=== PATIENT | male | born 1985 | race Caucasian/White ===

== ENCOUNTER 2017-07-20 14:20 | Emergency (ER) | payer MEDICAID ==
[2017-07-20] MEDS ORDERED: cefTRIAXone 1 GM Vial IM ONE (14:41)
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
[2017-07-20] MEDS ORDERED: Lidocaine 1% 2 ML ONE (14:46)
== END 2017-07-20 15:20 | disposition home or self-care (01) ==
LOC: VM.ED 14:20
DX: L03.115 Cellulitis of right lower limb (principal)
CPT/HCPCS: 87070; 87077; 96372; 99283; J0696; J2001

== ENCOUNTER 2017-09-27 07:26 | Observation (INO) | payer MEDICAID ==
[2017-09-27] MEDS ORDERED: hydrALAZINE 20 MG/ML SDV IVPUSH ONE (07:51)
[2017-09-27 08:54] LABS: CHLORIDE,CL 103 mmol/L (98-107); SODIUM,NA 138 mmol/L (136-145)
[2017-09-27 08:55] LABS: ANION GAP 16.1 mmol/L (10-20)
[2017-09-27] MEDS ORDERED: Ondansetron 4 MG/2 ML SDV IVPUSH ONE (09:12)
[2017-09-27] MEDS ORDERED: Ketorolac 30 MG/ML SDV IVPUSH ONE (09:15)
[2017-09-27] MEDS ORDERED: Metoclopramide 10 MG/2 ML SDV IVPUSH ONE (09:15)
[2017-09-27] MEDS ORDERED: Lactated Ringers 1,000 ML IV SCH (10:30)
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
[2017-09-27] MEDS: amLODIPine 5 MG Tab PO SCH (11:06)
[2017-09-27] MEDS: Sodium Chloride 0.9% 10 ML Syringe FLUSH PRN ×2 (11:07→20:30)
[2017-09-27] MEDS ORDERED: cloNIDine 0.1 MG Tab PO ONE (12:48)
[2017-09-27] MEDS ORDERED: Ondansetron 4 MG/2 ML SDV IVPUSH PRN (14:18)
[2017-09-27] MEDS ORDERED: amLODIPine 5 MG Tab PO ONE (14:20)
[2017-09-28] MEDS ORDERED: Ketorolac 15 MG/ML SDV IVPUSH ONE (06:24)
[2017-09-28] MEDS: Sodium Chloride 0.9% 10 ML Syringe FLUSH PRN (06:37)
[2017-09-28] MEDS: amLODIPine 5 MG Tab PO SCH (08:06)
--- NOTE | 2017-10-08 09:31 | PCM.DCSUM1 ---
Discharge Summary - Hospital Course Free Text/Narrative:: Discharge today on behalf of Darrius oLuis. HPI Initial Comments: He was in observation for hypertension and that has improved. Also his headache has improved. He is here with family and ready to be discharged. He will be following up with his primary provider Derrell by the end of the week. Diagnosis: Stroke: No Modified Osmel Scale: No Signif.Disability Despite Sympt.Able to Carry Out Usual Act./Duties Modified Osmel Scale Score: 1 - Discharge Data Discharge Date: 09/28/17 Discharge Disposition: Home, Self-Care 01 Condition: Good - Patient Instructions Diet: Regular Diet as Tolerated Wound/Incision Care: Change Dressing Daily - Discharge Plan Prescriptions/Med Rec: amLODIPine/Valsartan [Amlodipine-Valsartan 5-160 mg] 1 each PO DAILY #14 tablet Home Medications: Home Meds amLODIPine/Valsartan [Amlodipine-Valsartan 5-160 mg] 1 each PO DAILY #14 tablet 09/28/17 [Rx] Patient Handouts: Preventing Hypertension, Amlodipine; Valsartan oral tablet, Amlodipine tablets Forms: ED Department Discharge Referrals: Derrell Lopez NP [Primary Care Provider] - - Discharge Summary/Plan Comment DC Time >30 min.: No Discharge Summary/Plan Comment: Discharge ad [place]. On new medication for HTN. Follow-up with primary. Nominal existing headache. - Patient Data Vitals - Most Recent: Last Vital Signs Temp 36.4 C 09/28/17 10:00 Pulse 72 09/28/17 10:00 Resp 75 H 09/28/17 10:00 BP 138/92 H 09/28/17 10:00 Pulse Ox 98 09/28/17 10:00 Weight - Most Recent: 121.563 kg Med Orders - Current: Current Medications Discontinued Medications Amlodipine Besylate (Norvasc) 5 mg PO DAILY AARON Last Admin: 09/28/17 08:06 Dose: 5 mg Amlodipine Besylate (Norvasc) 5 mg PO ONETIME ONE Stop: 09/27/17 14:21 Last Admin: 09/27/17 14:30 Dose: 5 mg Clonidine HCl (Catapres) 0.1 mg PO ONETIME ONE Stop: 09/27/17 12:49 Last Admin: 09/27/17 13:00 Dose: 0.1 mg Hydralazine HCl (Apresoline) 20 mg IVPUSH ONETIME ONE Stop: 09/27/17 07:52 Last Admin: 09/27/17 08:13 Dose: 20 mg Lactated Ringer's (Ringers, Lactated) 1,000 mls @ 100 mls/hr IV ASDIRECTED AARON Last Admin: 09/27/17 11:08 Dose: 100 mls/hr Ketorolac Tromethamine (Toradol) 30 mg IVPUSH ONETIME ONE Stop: 09/27/17 09:16 Last Admin: 09/27/17 09:20 Dose: 30 mg Ketorolac Tromethamine (Toradol) 15 mg IVPUSH ONETIME ONE Stop: 09/28/17 06:25 Last Admin: 09/28/17 06:35 Dose: 15 mg Metoclopramide HCl (Reglan) 10 mg IVPUSH ONETIME ONE Stop: 09/27/17 09:16 Last Admin: 09/27/17 09:22 Dose: 10 mg Ondansetron HCl (Zofran) 4 mg IVPUSH ONETIME ONE Stop: 09/27/17 09:13 Last Admin: 09/27/17 10:56 Dose: Not Given Ondansetron HCl (Zofran) 4 mg IVPUSH Q8H PRN PRN Reason: Nausea Last Admin: 09/27/17 14:30 Dose: 4 mg Sodium Chloride (Saline Flush) 10 ml FLUSH ASDIRECTED PRN PRN Reason: Keep Vein Open Last Admin: 09/28/17 06:37 Dose: 10 ml
== END 2017-09-28 10:34 | disposition home or self-care (01) ==
LOC: VM.ED 07:26 → VM.MS 09:42 → UNDOADMOB 09:46 → VM.MS 09:46
PROVIDERS: ADMIT Physician Assistant; ATTEND Physician Assistant
DX: I16.0 Hypertensive urgency (principal); R51 Headache; Z79.899 Other long term (current) drug therapy
CPT/HCPCS: 36415; 70450; 71046; 80053; 81001; 83735; 83880; 84100; 84443; 84484; 85025; 85610; 86140; 93005; 96361; 96374; 96375; 96376; 99285; A9270; G0378; J0360; J1885; J2405; J2765; J7050; J7120

== ENCOUNTER 2018-07-02 12:01 | Emergency (ER) | payer MEDICAID ==
[2018-07-02] MEDS ORDERED: Metoprolol Succinate 50 MG Tab.ER PO ONE (12:18)
[2018-07-02] MEDS ORDERED: Take Home: Ondansetron 4 MG Tab.DIS, 2 Tab Pack PO ONE (12:44)
[2018-07-02 12:46] LABS: CHLORIDE,CL 101 mmol/L (98-107); SODIUM,NA 139 mmol/L (136-145)
[2018-07-02 12:47] LABS: ANION GAP 18.6 mmol/L (10-20)
--- NOTE | 2018-07-02 12:54 | EDM.PDOC ---
ED HPI GENERAL MEDICAL PROBLEM - General Chief Complaint: Gastrointestinal Problem Stated Complaint: vomiting, HEADACHE Time Seen by Provider: 07/02/18 12:02 Source of Information: Reports: Patient, Old Records, RN, RN Notes Reviewed History Limitations: Reports: No Limitations - History of Present Illness INITIAL COMMENTS - FREE TEXT/NARRATIVE: Patient presents to the ED at [facility] for the evaluation of a 3 day history of headache, nausea, and vomiting. Patient has not taken his blood pressure pill for 3 days because he ran out. No recent travel. Patient has not eaten since yesterday. No dizziness. No visual problems. No diarrhea. No chest pain or SOB. No other focal neurological problems. He states he has only vomited a couple times. Has has not taken any medications at home for his current symptoms. Onset Date: 06/30/18 - Related Data Allergies Allergy/AdvReac Type Severity Reaction Status Date / Time No Known Allergies Allergy Verified 07/02/18 12:16 Home Meds: Home Meds Citalopram [Citalopram HBr] 20 mg PO DAILY 07/02/18 [History] Metoprolol Succinate [Toprol XL 50mg] 50 mg PO DAILY 07/02/18 [History] Metoprolol Succinate [Toprol XL 50mg] 50 mg PO DAILY 6 Days #6 tab.er 07/02/18 [ Rx] Past Medical History Cardiovascular History: Reports: Blood Clots/VTE/DVT, Hypertension Gastrointestinal History: Reports: PUD Musculoskeletal History: Reports: Other (See Below) Other Musculoskeletal History: 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 Psychiatric History: Reports: Anxiety, Depression Dermatologic History: Reports: Other (See Below) Other Dermatologic History: Extensive williamson on most of body at 5 years of age - Infectious Disease History Infectious Disease History: Reports: MRSA - Past Surgical History Dermatological Surgical History: Reports: Plastic Surgical Reconstruction/Repair , Skin Graft Social & Family History - Family History Family Medical History: Unobtainable - Tobacco Use Smoking Status *Q: Current Every Day Smoker Years of Tobacco use: 11 Packs/Tins Daily: 0.5 - Caffeine Use Caffeine Use: Reports: Soda - Recreational Drug Use Drug Use in Last 12 Months: No ED ROS GENERAL - Review of Systems Review Of Systems: See Below Constitutional: Denies: Fever, Chills Respiratory: Denies: Shortness of Breath, Cough Cardiovascular: Denies: Chest Pain, Palpitations GI/Abdominal: Reports: Nausea, Vomiting. Denies: Abdominal Pain Skin: Reports: No Symptoms Neurological: Reports: Headache. Denies: Confusion, Dizziness ED EXAM, GI/ABD - Physical Exam Exam: See Below Exam Limited By: No Limitations General Appearance: Alert, No Apparent Distress Respiratory/Chest: No Respiratory Distress, Lungs Clear, Normal Breath Sounds Cardiovascular: Normal Peripheral Pulses, Regular Rate, Rhythm GI/Abdominal Exam: Normal Bowel Sounds, Soft, Non-Tender Neurological: Alert, Oriented Skin Exam: Warm, Dry, Intact, Normal Color Course - Vital Signs Last Recorded V/S: Last Vital Signs Temp 35.6 C 07/02/18 12:05 Pulse 77 07/02/18 13:56 Resp 16 07/02/18 13:56 BP 188/115 H 07/02/18 13:56 Pulse Ox 98 07/02/18 13:56 - Orders/Labs/Meds Orders: Active Orders 24 hr Category Date Time Status BLOOD SMEARS TO PATHOLOGIST [REF] Stat Lab 07/02/18 12:24 Received Sodium Chloride 0.9% [Normal Saline] 1,000 ml Med 07/02/18 13:10 Active IV ONETIME Sodium Chloride 0.9% [Saline Flush] Med 07/02/18 13:10 Active 10 ml FLUSH ASDIRECTED PRN Peripheral IV Insertion Adult [OM.PC] Routine Oth 07/02/18 13:10 Ordered Medication Orders Sodium Chloride (Normal Saline) 1,000 mls @ 999 mls/hr IV ONETIME ONE Stop: 07/02/18 14:10 Last Admin: 07/02/18 13:24 Dose: 999 mls/hr Sodium Chloride (Saline Flush) 10 ml FLUSH ASDIRECTED PRN PRN Reason: Keep Vein Open Labs: Laboratory Tests 07/02/18 07/02/18 Range/Units 12:24 12:24 WBC 7.7 (4.0-10.0) x10^3/uL RBC 7.15 H (4.5-6.0) x10^6/uL Hgb 20.4 H D (14.0-18.0) g/dL Hct 59.7 H (40.0-52.0) % MCV 83.5 (78.0-93.0) fL MCH 28.5 (26.0-32.0) pg MCHC 34.2 (32.0-36.0) g/dL RDW Coeff of Ari 15.3 H (10.0-15.0) % Plt Count 177 (130-400) x10^3/uL Neut % (Auto) 73.5 (50.0-80.0) % Lymph % (Auto) 16.7 L (25.0-50.0) % [place] % (Auto) 7.6 (2.0-11.0) % Eos % (Auto) 1.8 (0.0-4.0) % Baso % (Auto) 0.4 (0.2-1.2) % Sodium 139 (136-145) mmol/L Potassium 4.6 (3.5-5.1) mmol/L Chloride 101 (98-107) mmol/L Carbon Dioxide 24 (21-32) mmol/L Anion Gap 18.6 (10-20) mmol/L BUN 17 (7-18) mg/dL Creatinine 1.2 (0.70-1.30) mg/dL Est Cr Clr Drug Dosing TNP Estimated GFR (MDRD) > 60 Glucose 95 (74-106) mg/dL Calcium 9.9 (8.5-10.1) mg/dL Meds: Medications Generic Name Dose Route Start Last Admin Trade Name Freq PRN Reason Stop Dose Admin Sodium Chloride 1,000 mls @ 999 mls/hr 07/02/18 13:10 07/02/18 13:24 Normal Saline IV 07/02/18 14:10 999 mls/hr ONETIME ONE Administration Sodium Chloride 10 ml 07/02/18 13:10 Saline Flush FLUSH ASDIRECTED PRN Keep Vein Open Discontinued Medications Generic Name Dose Route Start Last Admin Trade Name Freq PRN Reason Stop Dose Admin Metoprolol Succinate 50 mg 07/02/18 12:18 07/02/18 12:39 Toprol Xl PO 07/02/18 12:19 50 mg ONETIME ONE Administration Ondansetron HCl 2 packet 07/02/18 12:44 07/02/18 13:24 Take Home: Ondansetron Odt 4 Mg, 2 Tab Pack PO 07/02/18 12:45 2 packet ONETIME ONE Administration Ondansetron HCl 4 mg 07/02/18 13:10 07/02/18 13:24 Zofran IVPUSH 07/02/18 13:11 4 mg ONETIME ONE Administration - Radiology Interpretation Free Text/Narrative:: Abd 2V: Nonspecific mild bowel distention See scanned report in EMR for details - Re-Assessments/Exams Free Text/Narrative Re-Assessment/Exam: 07/02/18 14:05 Blood pressure rechecked. 167/110. Headache has resolved. Nausea has resolved. Patient asking to be discharged "because I need to go get something to eat." Departure - Departure Time of Disposition: 14:06 Disposition: Home, Self-Care 01 Condition: Good Clinical Impression: Hypertensive urgency Nausea & vomiting Qualifiers: Vomiting type: bilious vomiting Qualified Code(s): R11.14 - Bilious vomiting - Discharge Information *PRESCRIPTION DRUG MONITORING PROGRAM REVIEWED*: Not Applicable *COPY OF PRESCRIPTION DRUG MONITORING REPORT IN PATIENT PATRICK: Not Applicable Prescriptions: Metoprolol Succinate [Toprol XL 50mg] 50 mg PO DAILY 6 Days #6 tab.er Instructions: Hypertension Referrals: Derrell Lopez [facility]DC[facility] ATTENDANT [Primary Care Provider] - Forms: ED Department Discharge Additional Instructions: 1. Stay well hydrated and rest 2. PLEASE take your blood pressure medication everyday; you have a new prescription at the pharmacy 3. LOTS of water 4. Continue getting dressing changes to your leg at the clinic 5. See your PCP as symptoms warrant - Problem List Review Problem List Initiated/Reviewed/Updated: Yes - My Orders Last 24 Hours: My Active Orders 07/02/18 12:24 BLOOD SMEARS TO PATHOLOGIST [REF] Stat 07/02/18 13:10 Sodium Chloride 0.9% [Normal Saline] 1,000 ml IV ONETIME Sodium Chloride 0.9% [Saline Flush] 10 ml FLUSH ASDIRECTED PRN Peripheral IV Insertion Adult [OM.PC] Routine - Assessment/Plan Last 24 Hours: My Active Orders 07/02/18 12:24 BLOOD SMEARS TO PATHOLOGIST [REF] Stat 07/02/18 13:10 Sodium Chloride 0.9% [Normal Saline] 1,000 ml IV ONETIME Sodium Chloride 0.9% [Saline Flush] 10 ml FLUSH ASDIRECTED PRN Peripheral IV Insertion Adult [OM.PC] Routine Assessment:: Hypertensive urgency Headache 2/2 to above N/V 2/2 to above Plan: Patient given his usual dose of Toprol XL in ED. IVF for elevated H&H. Zofran for nausea. Will give patient 6 tabs of Toprol XL 50 until he can get to the pharmacy. Take home pack for nausea. Needs to follow up in clinic for his blood pressure. Patient stable at discharge. Needs to stay well hydrated.
--- NOTE | 2018-07-02 13:05 | CR ---
[id number] RAD/RAD Abd Flat and Upright 2V Exam: RAD Abd Flat and Upright 2V Clinical Data: ABDOMINAL PAIN COMPARISON: NO PREVIOUS SIMILAR EXAM IS AVAILABLE FINDINGS: There is mild bowel distention. The diaphragm is not entirely included on the exam. There is no organomegaly or pathologic calcification. IMPRESSION: NONSPECIFIC MILD BOWEL DISTENTION. CONSIDER ERECT VIEW INCLUDING THE DIAPHRAGM OR CHEST RADIOGRAPH TO CHECK FOR ANY FREE AIR IF NEEDED. Duran Stephens MD 07/02/18 [id number] Thank you for allowing us to participate in the care of your patient.
[2018-07-02] MEDS ORDERED: Sodium Chloride 0.9% 10 ML Syringe FLUSH PRN (13:10)
[2018-07-02] MEDS ORDERED: Sodium Chloride 0.9% 1,000 ML IV ONE (13:10)
[2018-07-02] MEDS ORDERED: Ondansetron 4 MG/2 ML SDV IVPUSH ONE (13:10)
== END 2018-07-02 14:36 | disposition home or self-care (01) ==
LOC: VM.ED 12:01
DX: I16.0 Hypertensive urgency (principal); R11.14 Bilious vomiting; F17.210 Nicotine dependence, cigarettes, uncomplicated; Z79.899 Other long term (current) drug therapy
CPT/HCPCS: 36415; 74019; 80048; 85008; 85025; 96361; 96374; 99283; A9270; J2405; J7030

== ENCOUNTER 2022-03-08 12:31 | Emergency (ER) | payer MEDICARE, MEDICAID | END 2022-03-08 12:55 | disposition home or self-care (01) | LOC: VM.ED 12:31 | DX: L97.929 Non-pressure chronic ulcer of unspecified part of left lower leg with unspecified severity (principal); I10 Essential (primary) hypertension; Z79.899 Other long term (current) drug therapy | CPT/HCPCS: 99282; 99283 ==

== ENCOUNTER 2023-11-12 21:50 | Emergency (ER) | payer MEDICARE, MEDICAID ==
[2023-11-12] MEDS ORDERED: Sodium Chloride 0.9% 10 ML Syringe FLUSH PRN (21:57)
[2023-11-12] MEDS: Lactated Ringers 1,000 ML IV ONE ×2 (22:25→23:20)
[2023-11-12] MEDS: Ondansetron 4 MG/2 ML SDV IVPUSH ONE (22:30)
[2023-11-12 22:34] LABS: BASOPHILS PERCENT AUTO 0.2 % (0.2-1.2); EOSINOPHILS ABSOLUTE AUTO 0.1 x10^3/uL (0.0-0.5); EOSINOPHILS PERCENT AUTO 1.3 % (0.0-4.0); HEMOGLOBIN 18.2 g/dL (14.0-18.0); IMMATURE GRAN ABSOLUTE AUTO 0.02 x10^3/uL (0.00-0.07); LYMPHOCYTES PERCENT AUTO 22.4 % (25.0-50.0); MEAN CORPUSCULAR HEMOGLOBIN 27.7 pg (26.0-32.0); MEAN CORPUSCULAR HGB CONC 34.3 g/dL (32.0-36.0); MEAN CORPUSCULAR VOLUME 80.7 fL (78.0-93.0); MONOCYTES ABSOLUTE AUTO 0.4 x10^3/uL (0.0-0.8); MONOCYTES PERCENT AUTO 9.9 % (2.0-11.0); NEUTROPHILS ABSOLUTE AUTO 2.9 x10^3/uL (1.8-7.7); NEUTROPHILS PERCENT AUTO 65.8 % (50.0-80.0); PLATELET COUNT,PLT 154 x10^3/uL (130-400); RED BLOOD CELL COUNT 6.57 x10^6/uL (4.5-6.0); WHITE BLOOD CELL COUNT,WBC 4.5 x10^3/uL (4.0-10.0)
[2023-11-12 22:48] LABS: INR 1.1 (0.9-1.1); PROTHROMBIN TIME 10.9 SEC (8.9-11.5); PTT,PARTIAL THROMBOPLSTIN TIME 28.8 SEC (21.9-33.8)
[2023-11-12 22:53] LABS: LACTIC ACID 1.1 mmol/L (0.4-2.0)
[2023-11-12 22:59] LABS: A/G RATIO 0.93; ALANINE AMINOTRANSFERASE,ALT 58 U/L (16-63); ALKALINE PHOSPHATASE 122 U/L (46-116); ASPARTATE AMNIOTRANSFERASE,AST 40 U/L (15-37); BILIRUBIN TOTAL 1.1 mg/dL (0.2-1.0); BLOOD UREA NITROGEN,BUN 23 mg/dL (7-18); C-REACTIVE PROTEIN 4.92 mg/dL (<=0.50); CALCIUM 9.3 mg/dL (8.5-10.1); CARBON DIOXIDE,CO2 22 mmol/L (21-32); CHLORIDE,CL 99 mmol/L (98-107); CREATININE 1.6 mg/dL (0.70-1.30); GLUCOSE RANDOM 93 mg/dL (70-99); LIPASE 38 U/L (19-71); MAGNESIUM 1.8 mg/dL (1.8-2.4); POTASSIUM,K 3.5 mmol/L (3.5-5.1); PROTEIN TOTAL,TP 8.3 g/dL (6.4-8.2); SODIUM,NA 135 mmol/L (136-145)
[2023-11-12 23:00] LABS: ANION GAP 17.5 mmol/L (5-15); ESTIMATED GFR 57 mL/min (>=60)
[2023-11-12 23:09] LABS: APPEARANCE,URINE SLIGHTLY CLOUDY (CLEAR); BILIRUBIN,URINE SMALL (NEGATIVE); COLOR,URINE DARK YELLOW (YELLOW); GLUCOSE,URINE NEGATIVE (NEGATIVE); KETONES,URINE 40 mg/dL (NEGATIVE); LEUKOCYTE ESTERASE,URINE NEGATIVE (NEGATIVE); NITRITE,URINE NEGATIVE (NEGATIVE); OCCULT BLOOD,URINE NEGATIVE (NEGATIVE); PH,URINE 5.5 (5.0-8.0); PROTEIN,URINE 100 mg/dL (NEGATIVE)
[2023-11-12 23:15] LABS: AMORPHOUS SEDIMENT,URINE OCCASIONAL; BACTERIA,URINE RARE /HPF (NOT SEEN); GRANULAR CASTS,URINE FEW; HYALINE CASTS,URINE FEW; MUCUS,URINE FEW /LPF (NOT SEEN); RBC,URINE 0-5 /HPF (NOT SEEN); SQUAMOUS EPITHELIAL CELLS,UR NOT SEEN /HPF (NOT SEEN); WBC,URINE 0-5 /HPF (NOT SEEN)
[2023-11-12] MEDS: Take Home: Ondansetron 4 MG Tab.DIS, 5 Tab Pack PO ONE (23:37)
== END 2023-11-13 00:10 | disposition home or self-care (01) ==
LOC: VM.ED 21:50
DX: K52.9 Noninfective gastroenteritis and colitis, unspecified (principal); I10 Essential (primary) hypertension; Z79.899 Other long term (current) drug therapy
CPT/HCPCS: 80053; 81001; 83605; 83690; 83735; 85025; 85610; 85730; 86140; 96361; 96374; 99284-25; J2405; J7120; Q0162

== ENCOUNTER 2024-02-09 06:09 | Emergency (ER) | payer MEDICARE, MEDICAID ==
[2024-02-09] MEDS ORDERED: Sodium Chloride 0.9% 10 ML Syringe FLUSH PRN (06:29)
[2024-02-09] MEDS: Morphine 4 MG/ML Syringe IVPUSH ONE (07:00)
[2024-02-09] MEDS: Lactated Ringers 1,000 ML IV ONE ×2 (07:00→08:20)
[2024-02-09 07:15] LABS: BASOPHILS PERCENT AUTO 0.5 % (0.2-1.2); EOSINOPHILS ABSOLUTE AUTO 0.2 x10^3/uL (0.0-0.5); EOSINOPHILS PERCENT AUTO 2.9 % (0.0-4.0); HEMATOCRIT 51.4 % (40.0-52.0); HEMOGLOBIN 17.7 g/dL (14.0-18.0); IMMATURE GRAN ABSOLUTE AUTO 0.03 x10^3/uL (0.00-0.07); LYMPHOCYTES ABSOLUTE AUTO 1.2 x10^3/uL (1.0-4.8); LYMPHOCYTES PERCENT AUTO 19.4 % (25.0-50.0); MEAN CORPUSCULAR HEMOGLOBIN 29.2 pg (26.0-32.0); MEAN CORPUSCULAR HGB CONC 34.4 g/dL (32.0-36.0); MEAN CORPUSCULAR VOLUME 84.7 fL (78.0-93.0); MONOCYTES ABSOLUTE AUTO 0.4 x10^3/uL (0.0-0.8); MONOCYTES PERCENT AUTO 7.1 % (2.0-11.0); NEUTROPHILS ABSOLUTE AUTO 4.3 x10^3/uL (1.8-7.7); NEUTROPHILS PERCENT AUTO 69.6 % (50.0-80.0); PLATELET COUNT,PLT 212 x10^3/uL (130-400); RED BLOOD CELL COUNT 6.07 x10^6/uL (4.5-6.0); WHITE BLOOD CELL COUNT,WBC 6.2 x10^3/uL (4.0-10.0)
[2024-02-09] MEDS: Aspirin 81 MG Tab.Chew PO ONE (07:24)
[2024-02-09 07:33] LABS: A/G RATIO 0.84; ALANINE AMINOTRANSFERASE,ALT 38 U/L (16-63); ALBUMIN 3.8 g/dL (3.4-5.0); ALKALINE PHOSPHATASE 119 U/L (46-116); ASPARTATE AMNIOTRANSFERASE,AST 20 U/L (15-37); BILIRUBIN TOTAL 0.6 mg/dL (0.2-1.0); BLOOD UREA NITROGEN,BUN 24 mg/dL (7-18); C-REACTIVE PROTEIN 1.66 mg/dL (<=0.50); CALCIUM 9.4 mg/dL (8.5-10.1); CARBON DIOXIDE,CO2 27 mmol/L (21-32); CHLORIDE,CL 102 mmol/L (98-107); CREATININE 1.8 mg/dL (0.70-1.30); EST CRCL DRUG DOSING (CG) 58.02 mL/min; GLUCOSE RANDOM 74 mg/dL (70-99); MAGNESIUM 2.2 mg/dL (1.8-2.4); POTASSIUM,K 4.1 mmol/L (3.5-5.1); PRO B-TYPE NATRIUR PEPT,BNPPRO 160 pg/mL (<=125); PROTEIN TOTAL,TP 8.3 g/dL (6.4-8.2); SODIUM,NA 139 mmol/L (136-145); TSH ULTRASENSITIVE 2.399 uIU/mL (0.358-3.74)
[2024-02-09 07:38] LABS: LACTIC ACID 0.9 mmol/L (0.4-2.0)
[2024-02-09 07:57] LABS: ANION GAP 14.1 mmol/L (5-15); ESTIMATED GFR 49 mL/min (>=60)
[2024-02-09 08:10] LABS: PROTHROMBIN TIME 10.4 SEC (8.9-11.5); PTT,PARTIAL THROMBOPLSTIN TIME 30.3 SEC (21.9-33.8)
[2024-02-09] MEDS ORDERED: Atropine 0.1 MG/ML 10 ML Syringe IVPUSH ONE (08:14)
[2024-02-09 08:31] LABS: APPEARANCE,URINE CLEAR (CLEAR); BILIRUBIN,URINE NEGATIVE (NEGATIVE); COLOR,URINE YELLOW (YELLOW); GLUCOSE,URINE NEGATIVE (NEGATIVE); KETONES,URINE NEGATIVE (NEGATIVE); LEUKOCYTE ESTERASE,URINE NEGATIVE (NEGATIVE); NITRITE,URINE NEGATIVE (NEGATIVE); OCCULT BLOOD,URINE NEGATIVE (NEGATIVE); PH,URINE 6.5 (5.0-8.0); PROTEIN,URINE NEGATIVE (NEGATIVE); UROBILINOGEN,URINE 0.2 EU/dL (0.2)
[2024-02-09 08:35] LABS: AMPHETAMINES SCREEN, URINE NEGATIVE (NEGATIVE); BARBITURATE SCREEN,URINE NEGATIVE (NEGATIVE); BENZODIAZEPINES SCREEN,URINE NEGATIVE (NEGATIVE); BUPRENORPHINE SCREEN,URINE NEGATIVE (NEGATIVE); COCAINE METABOLITES,URINE NEGATIVE (NEGATIVE); METHADONE SCREEN, URINE NEGATIVE (NEGATIVE); METHAMPHETAMINE SCREEN, URINE NEGATIVE (NEGATIVE); OXYCODONE SCREEN,URINE NEGATIVE (NEGATIVE); PCP SCREEN,URINE NEGATIVE (NEGATIVE); THC SCREEN,URINE 50 NG/ML POSITIVE (NEGATIVE)
[2024-02-09] MEDS: Piperacillin/Tazobactam 4.5 GM in Sodium Chloride 0.9% 100 ML IV ONE (08:36)
[2024-02-09] MEDS: Heparin Sodium/0.45% NaCl 25,000 UNITS/500 ML BAG IV SCH (08:49)
[2024-02-09] MEDS: VANCOmycin 1.25 GM/250 ML 1.25 GM in Premix Bag 1 BAG IV ONE (09:07)
== END 2024-02-09 10:05 | disposition short-term general hospital (02) ==
LOC: VM.ED 06:09
DX: R07.89 Other chest pain (principal); I95.9 Hypotension, unspecified; I24.9 Acute ischemic heart disease, unspecified; N17.9 Acute kidney failure, unspecified; R00.1 Bradycardia, unspecified; F12.10 Cannabis abuse, uncomplicated; Z79.899 Other long term (current) drug therapy
CPT/HCPCS: 36415; 71045; 80053; 80305; 81003; 83605; 83735; 83880; 84443; 84484; 85025; 85379; 85610; 85730; 86140; 87040; 87070; 87075; 87147; 93005; 93010; 96361; 96365; 96367; 96368; 99284; 99285; A9270; J1644; J2543; J3372; J3490; J7120

== ENCOUNTER 2024-05-12 18:07 | Emergency (ER) | payer MEDICARE, MEDICAID ==
[2024-05-12] MEDS: Ondansetron 4 MG Tab.DIS PO ONE (18:25)
[2024-05-12] MEDS ORDERED: Sodium Chloride 0.9% 10 ML Syringe FLUSH PRN (18:51)
[2024-05-12] MEDS: Lactated Ringers 1,000 ML IV ONE (19:00)
[2024-05-12] MEDS: Ondansetron 4 MG/2 ML SDV IVPUSH ONE (19:00)
[2024-05-12 19:03] LABS: BASOPHILS PERCENT AUTO 0.1 % (0.2-1.2); EOSINOPHILS ABSOLUTE AUTO 0.1 x10^3/uL (0.0-0.5); EOSINOPHILS PERCENT AUTO 0.8 % (0.0-4.0); HEMATOCRIT 55.7 % (40.0-52.0); HEMOGLOBIN 19.1 g/dL (14.0-18.0); IMMATURE GRAN ABSOLUTE AUTO 0.02 x10^3/uL (0.00-0.07); LYMPHOCYTES ABSOLUTE AUTO 1.2 x10^3/uL (1.0-4.8); LYMPHOCYTES PERCENT AUTO 10.8 % (25.0-50.0); MEAN CORPUSCULAR HEMOGLOBIN 28.5 pg (26.0-32.0); MEAN CORPUSCULAR HGB CONC 34.3 g/dL (32.0-36.0); MONOCYTES ABSOLUTE AUTO 0.8 x10^3/uL (0.0-0.8); MONOCYTES PERCENT AUTO 6.9 % (2.0-11.0); NEUTROPHILS ABSOLUTE AUTO 9.2 x10^3/uL (1.8-7.7); NEUTROPHILS PERCENT AUTO 81.2 % (50.0-80.0); PLATELET COUNT,PLT 258 x10^3/uL (130-400); RED BLOOD CELL COUNT 6.71 x10^6/uL (4.5-6.0); WHITE BLOOD CELL COUNT,WBC 11.4 x10^3/uL (4.0-10.0)
[2024-05-12 19:20] LABS: A/G RATIO 0.67; ALANINE AMINOTRANSFERASE,ALT 59 U/L (16-63); ALBUMIN 3.6 g/dL (3.4-5.0); ALKALINE PHOSPHATASE 126 U/L (46-116); BILIRUBIN TOTAL 1.2 mg/dL (0.2-1.0); BLOOD UREA NITROGEN,BUN 12 mg/dL (7-18); CALCIUM 9.8 mg/dL (8.5-10.1); CARBON DIOXIDE,CO2 23 mmol/L (21-32); CREATININE 1.3 mg/dL (0.70-1.30); GLUCOSE RANDOM 109 mg/dL (70-99)
[2024-05-12 19:34] LABS: ESTIMATED GFR 73 mL/min (>=60)
[2024-05-12 19:43] LABS: ASPARTATE AMNIOTRANSFERASE,AST 32 U/L (15-37); CHLORIDE,CL 99 mmol/L (98-107); POTASSIUM,K 3.9 mmol/L (3.5-5.1); SODIUM,NA 138 mmol/L (136-145)
[2024-05-12] MEDS: Take Home: Ondansetron 4 MG Tab.DIS, 5 Tab Pack PO ONE (20:35)
== END 2024-05-12 20:40 | disposition home or self-care (01) ==
LOC: VM.ED 18:07
DX: A08.4 Viral intestinal infection, unspecified (principal); I10 Essential (primary) hypertension; Z79.899 Other long term (current) drug therapy; Z79.02 Long term (current) use of antithrombotics/antiplatelets
CPT/HCPCS: 36415; 80053; 85025; 87428-QW; 96361; 96374; 99283-25; 99284; A9270-GY; J2405; J7120; Q0162

== ENCOUNTER 2024-05-17 10:18 | Emergency (ER) | payer MEDICARE, MEDICAID ==
[2024-05-17] MEDS: predniSONE 20 MG Tab PO ONE (11:06)
== END 2024-05-17 11:28 ==
LOC: VM.ED 10:18
DX: H65.92 Unspecified nonsuppurative otitis media, left ear (principal); I10 Essential (primary) hypertension; Z79.02 Long term (current) use of antithrombotics/antiplatelets; Z79.899 Other long term (current) drug therapy
CPT/HCPCS: 69209; 99282; J7512

== ENCOUNTER 2024-11-16 17:53 | Emergency (ER) | payer MEDICARE, MEDICAID ==
[2024-11-16] MEDS: Nitroglycerin 0.4 MG Tab.SL SL ONE (18:00)
[2024-11-16 18:07] LABS: BASOPHILS ABSOLUTE AUTO 0.0 x10^3/uL (0.0-0.2); BASOPHILS PERCENT AUTO 0.3 % (0.2-1.2); EOSINOPHILS ABSOLUTE AUTO 0.3 x10^3/uL (0.0-0.5); EOSINOPHILS PERCENT AUTO 3.9 % (0.0-4.0); IMMATURE GRAN ABSOLUTE AUTO 0.02 x10^3/uL (0.00-0.07); IMMATURE GRAN PERCENT AUTO 0.30 % (0.00-0.43); LYMPHOCYTES ABSOLUTE AUTO 1.1 x10^3/uL (1.0-4.8); LYMPHOCYTES PERCENT AUTO 15.3 % (25.0-50.0); MONOCYTES ABSOLUTE AUTO 0.8 x10^3/uL (0.0-0.8); MONOCYTES PERCENT AUTO 11.2 % (2.0-11.0); NEUTROPHILS ABSOLUTE AUTO 4.8 x10^3/uL (1.8-7.7); NEUTROPHILS PERCENT AUTO 69.0 % (50.0-80.0); PLATELET COUNT,PLT 202 x10^3/uL (130-400); RED BLOOD CELL COUNT 5.96 x10^6/uL (4.5-6.0); WHITE BLOOD CELL COUNT,WBC 7.0 x10^3/uL (4.0-10.0)
[2024-11-16] MEDS: hydrALAZINE 20 MG/ML SDV IVPUSH ONE (18:25)
[2024-11-16] MEDS: LORazepam 2 MG/ML SDV IVPUSH ONE (18:26)
[2024-11-16 18:34] LABS: A/G RATIO 0.97; ALANINE AMINOTRANSFERASE,ALT 42 U/L (16-63); ASPARTATE AMNIOTRANSFERASE,AST 24 U/L (15-37); BILIRUBIN TOTAL 0.4 mg/dL (0.2-1.0); BLOOD UREA NITROGEN,BUN 19 mg/dL (7-18); CARBON DIOXIDE,CO2 26 mmol/L (21-32); CHLORIDE,CL 103 mmol/L (98-107); CREATININE 1.3 mg/dL (0.70-1.30); GLUCOSE RANDOM 96 mg/dL (70-99); POTASSIUM,K 4.1 mmol/L (3.5-5.1); PRO B-TYPE NATRIUR PEPT,BNPPRO 215 pg/mL (<=125); PROTEIN TOTAL,TP 7.7 g/dL (6.4-8.2); SODIUM,NA 140 mmol/L (136-145)
[2024-11-16 18:35] LABS: ESTIMATED GFR 72 mL/min (>=60)
[2024-11-16] MEDS ORDERED: Nitroglycerin 0.4 MG Tab.SL SL PRN (18:36)
[2024-11-16] MEDS: Alum Hydrox/Mag Hydrox/Simeth 30 ML, Lidocaine 2% 15 ML, Promethazine 12.5 MG PO ONE (18:56)
== END 2024-11-16 20:45 | disposition home or self-care (01) ==
LOC: VM.ED 17:53
DX: R07.9 Chest pain, unspecified (principal); I10 Essential (primary) hypertension; I25.2 Old myocardial infarction; Z79.899 Other long term (current) drug therapy
CPT/HCPCS: 36415; 71045; 80053; 83690; 83735; 83880; 84484; 85025; 85379; 93005; 93010; 96374; 96375; 99284; 99285; A9270; J0360; J2060; J2270